=== PATIENT | male | born 1935 | race Caucasian/White ===

== ENCOUNTER 2016-12-20 12:17 | Outpatient (CLI) | payer MEDICARE, OTHER | END 2016-12-20 12:18 | disposition home or self-care (01) | DX: R97.20 Elevated prostate specific antigen [PSA] (principal) ==

== ENCOUNTER 2018-02-22 08:00 | Outpatient (CLI) | payer MEDICARE, OTHER ==
[2018-02-22 19:21] LABS: PSA FREE 0.55 ng/mL (0.16-2.81)
[2018-02-22 19:22] LABS: PSA TOTAL 4.9 ng/mL (0.000-2.000)
== END 2018-02-22 08:01 | disposition home or self-care (01) ==
LOC: LAB.WCP 08:00
PROVIDERS: ATTEND Family Medicine
DX: R97.20 Elevated prostate specific antigen [PSA] (principal)
CPT/HCPCS: 36415; 84154

== ENCOUNTER 2018-05-05 11:29 | Outpatient (CLI) | payer MEDICARE, OTHER ==
[2018-05-05 19:24] LABS: BASOPHILS % (AUTO) 0.3 %; EOSINOPHILS % (AUTO) 0.4 %; HGB - HEMOGLOBIN 15.9 g/dL (14.0-18.0); MEAN CORPUSCULAR HEMOGLOBIN 30.4 pg (27.0-31.0); MEAN CORPUSCULAR VOLUME 92.1 fL (80.0-94.0); MEAN PLATELET VOLUME 10.1 fL (7.4-11.4); MONOCYTES % (AUTO) 12.3 %; PLT - PLATELET COUNT 183 10^3/uL (130-450); RED BLOOD COUNT 5.25 10^6/uL (4.70-6.10); RED CELL DISTRIBUTION WIDTH 15.2 % (12.0-15.0); WHITE BLOOD COUNT 5.1 x10^3/uL (4.8-10.8)
[2018-05-05 19:36] LABS: ABNORMAL LYMPHS % (MANUAL) 0 %
[2018-05-05 20:35] LABS: BAND NEUTROPHILS % (MANUAL) 5 %; DIFFERENTIAL COMMENT MANUAL DIFFERENTIAL; EOSINOPHILS # (MANUAL) 0.1 10^3/uL (0-0.7); LYMPHOCYTES # (MANUAL) 0.5 10^3/uL (1.5-3.5); LYMPHOCYTES % (MANUAL) 9 %; MONOCYTES # (MANUAL) 0.4 10^3/uL (0.0-1.0); NEUTROPHILS # (MANUAL) 4.2 10^3/uL (1.5-6.6); NEUTROPHILS % (MANUAL) 78 %; PLATELET ESTIMATE, MANUAL NORMAL (130-450,000) (NORMAL); PLATELET MORPHOLOGY NORMAL APPEARANCE (NORMAL); RBC MORPHOLOGY (MULTIPLE) NORMAL APPEARANCE (NORMAL)
== END 2018-05-05 11:30 | disposition home or self-care (01) ==
LOC: LAB.WCP 11:29
PROVIDERS: ATTEND Family Medicine
DX: K52.9 Noninfective gastroenteritis and colitis, unspecified (principal)
CPT/HCPCS: 36415; 85025

== ENCOUNTER 2018-07-02 18:41 | Outpatient (CLI) | payer MEDICARE, OTHER | END 2018-07-02 18:42 | disposition critical access hospital (66) | LOC: EMS 18:41 | PROVIDERS: ATTEND Surgery | DX: R06.00 Dyspnea, unspecified (principal) | CPT/HCPCS: A0425; A0427 ==

== ENCOUNTER 2018-07-02 18:56 | Emergency (ER) | payer MEDICARE, OTHER ==
[2018-07-02] MEDS ORDERED: IPRATROPIUM/ALBUTEROL 3 ML NEB INH STA (19:03)
[2018-07-02] MEDS ORDERED: MORPHINE 2 MG/ML CARPUJECT IVP STA (19:22)
--- NOTE | 2018-07-02 19:25 | ED Physician Documentation ---
PD HPI DYSPNEA - Stated complaint Stated Complaint: SOA - Chief complaint Chief Complaint: Resp - History obtained from History obtained from: Patient, EMS - History of Present Illness Timing - onset: How many days ago (2) Timing - onset during: Rest Timing - duration: Days (2) Timing - details: Gradual onset Pain level max: 0 Pain level now: 0 Inciting event(s): URI (states coughing for a few days) Improved by: O2, BiPAP / CPAP, Rest Similar symptoms before: Has not had sx before Recently seen: Not recently seen - Additional information Additional information: Patient is a 83 year old male who presents to the Emergency Department with c/o SOA. States his medical record coder is at [facility]. Review of Systems Unable to obtain: Other (BIPAP, resp distress) PD PAST MEDICAL HISTORY - Past Medical History Past Medical History: Yes Cardiovascular: Hypertension : Benign prostate hypertrophy - Past Surgical History Past Surgical History: Yes Cardiovascular: Pacemaker - Allergies Allergies/Adverse Reactions: Allergies Allergy/AdvReac Type Severity Reaction Status Date / Time Penicillins Allergy Unknown Verified 07/02/18 19:03 shrimp Allergy Unknown Verified 07/02/18 19:04 - Living Situation Living Situation: reports: With family Living Arrangement: reports: At home - Social History Does the pt smoke?: No Does the pt have substance abuse?: No - Family History Family history: reports: Non contributory PD ED PE NORMAL - Vitals Vital signs reviewed: Yes - General General: Alert and oriented X 3, Well developed/nourished, Other (severe resp distress, unable to speak more than 1 word at a time. ) - HEENT HEENT: PERRL, Moist mucous membranes - Neck Neck: Supple, no meningeal sign - Cardiac Cardiac: Other (tachycardic) - Respiratory Respiratory: Other (rhonchi B, tachypneic) - Abdomen Abdomen: Soft, Non tender - Back Back: No spinal TTP - Derm Derm: Warm and dry - Extremities Extremities: No edema - Neuro Neuro: Alert and oriented X 3 Results - Vitals Vitals: Vital Signs - 24 hr 07/02/18 07/02/18 07/02/18 18:58 19:17 19:24 Temperature 36.7 C Heart Rate 128 H 126 H 124 H Respiratory 40 H 32 H Rate Blood Pressure 183/100 H O2 Saturation 88 L 0907/02/18 07/02/18 19:35 20:29 21:23 Temperature 36.4 C L 36.6 C Heart Rate 116 H 91 89 Respiratory 23 17 Rate Blood Pressure 157/84 H 107/70 O2 Saturation 100 96 07/02/18 22:20 Temperature 36.8 C Heart Rate 85 Respiratory 17 Rate Blood Pressure 117/75 O2 Saturation 98 Oxygen O2 Source BIPAP Oxygen Flow Rate 20 - EKG (time done) 1919 Rate: Rate (enter#) (125) Rhythm: Paced (on monitor) Intervals: LBBB - Labs Labs: Laboratory Tests 07/02/18 07/02/18 07/02/18 19:25 19:25 19:25 WBC 10.4 RBC 5.23 Hgb 16.5 Hct 48.6 MCV 93.0 MCH 31.6 H MCHC 33.9 RDW 15.3 H Plt Count 218 MPV 9.1 Neut # (Auto) 9.0 H Lymph # (Auto) 0.6 L Divide # (Auto) 0.5 Eos # (Auto) 0.1 Baso # (Auto) 0.1 Absolute Nucleated RBC 0.01 Nucleated RBC % 0.1 Sodium 132 L Potassium 3.8 Chloride 96 L Carbon Dioxide 24 Anion Gap 12.0 BUN 19 Creatinine 1.5 H Estimated GFR (MDRD) 45 L Glucose 259 H Calcium 9.4 Total Bilirubin 0.9 AST 31 ALT 15 Alkaline Phosphatase 79 Troponin I 0.34 B-Natriuretic Peptide Total Protein 7.7 Albumin 4.2 Globulin 3.5 Albumin/Globulin Ratio 1.2 Lipase 46 Urine Color Urine Clarity Urine pH Ur Specific [place] Urine Protein Urine Glucose (UA) Urine Ketones Urine Occult Blood Urine Nitrite Urine Bilirubin Urine Urobilinogen Ur Leukocyte Esterase Urine RBC Urine WBC Ur Squamous Epith Cells Urine Bacteria Urine Casts Ur Microscopic Review Urine Culture Comments 07/02/18 07/02/18 19:25 21:10 WBC RBC Hgb Hct MCV MCH MCHC RDW Plt Count MPV Neut # (Auto) Lymph # (Auto) Divide # (Auto) Eos # (Auto) Baso # (Auto) Absolute Nucleated RBC Nucleated RBC % Sodium Potassium Chloride Carbon Dioxide Anion Gap BUN Creatinine Estimated GFR (MDRD) Glucose Calcium Total Bilirubin AST ALT Alkaline Phosphatase Troponin I B-Natriuretic Peptide 1057 H Total Protein Albumin Globulin Albumin/Globulin Ratio Lipase Urine Color YELLOW Urine Clarity CLEAR Urine pH 6.0 Ur Specific [place] 1.020 Urine Protein 100 H Urine Glucose (UA) NEGATIVE Urine Ketones NEGATIVE Urine Occult Blood NEGATIVE Urine Nitrite NEGATIVE Urine Bilirubin NEGATIVE Urine Urobilinogen 0.2 (NORMAL) Ur Leukocyte Esterase NEGATIVE Urine RBC 0-5 Urine WBC 4-5 Ur Squamous Epith Cells NONE SEEN Urine Bacteria None Seen Urine Casts 3-5 Granular Casts Ur Microscopic Review INDICATED Urine Culture Comments NOT INDICATED - Rads (name of study) cxr Radiology: Prelim report reviewed, EMP read contemporaneously, See rad report (pulmonary edema) PD MEDICAL DECISION MAKING - ED course Complexity details: reviewed results, re-evaluated patient, considered differential, d/w patient, d/w organizational development consultant (2100 - Dr. Bartlett ICU [facility] [place]) ED course: Patient is an 83-year-old male who presents to the emergency department with sudden onset dyspnea tonight consistent with flash pulmonary edema, likely secondary to coronary artery disease. He was maintained on BiPAP, given Lasix and morphine. Gradually improved. Was not given nitroglycerin as he had taken Viagra recently. No history of coronary artery disease but does have a history of a pacemaker for syncope several years ago. His medical record coder is at [facility], does not recall the name. [facility] has no beds and so will be transferred to [facility] [place], Dr. Bartlett in the ICU graciously accepts in transfer. Patient started on a heparin drip. This document was made in part using voice recognition software. While efforts are made to proofread this document, sound alike and grammatical errors may occur. Patient was able to be weaned off of BiPAP onto an oxygen mask at 5 L. He is then transported to [facility] in [place] - Critical Care Time(min): 45 Time Includes: Direct patient care, Review records, Reassess patient, Document care, Coordinate care, See progress note Data interpretation: See progress note Procedures included in critical care time: See progress note Procedures excluded from critical care time: EKG, See progress note - Sepsis Event Vital Signs: Vital Signs - 24 hr 07/02/18 07/02/18 07/02/18 18:58 19:17 19:24 Temperature 36.7 C Heart Rate 128 H 126 H 124 H Respiratory 40 H 32 H Rate Blood Pressure 183/100 H O2 Saturation 88 L 07/02/18 07/02/18 07/02/18 19:35 20:29 21:23 Temperature 36.4 C L 36.6 C Heart Rate 116 H 91 89 Respiratory 23 17 Rate Blood Pressure 157/84 H 107/70 O2 Saturation 100 96 07/02/18 22:20 Temperature 36.8 C Heart Rate 85 Respiratory 17 Rate Blood Pressure 117/75 O2 Saturation 98 Oxygen O2 Source BIPAP Oxygen Flow Rate 20 Departure - Departure Disposition: 02 Transfer Acute Care Hosp Clinical Impression: NSTEMI (non-ST elevated myocardial infarction), Flash pulmonary edema Condition: Stable
--- NOTE | 2018-07-02 19:30 | XRAY Report ---
Reason: dyspnea Procedure Date: 07/02/2018 Accession Number: [id number] / [id number] Procedure: XR - Chest 1 View X-Ray CPT Code: 37111 FULL RESULT: EXAM: CHEST RADIOGRAPHY EXAM DATE: 07/02/2018 07:11 PM. CLINICAL HISTORY: Dyspnea. COMPARISON: CHEST 2 VIEW PA/LAT 09/23/2017 12:02 AM. TECHNIQUE: 1 view. FINDINGS: Lungs/Pleura: Diffuse vascular engorgement. Perihilar predominant interstitial and airspace opacities. No pleural effusion or pneumothorax. Mediastinum: Heart size is normal. The aorta is mildly tortuous, as before. Left sided bipolar pacemaker generator with atrial and ventricular leads in similar positions. Other: Degenerative changes within the spine. IMPRESSION: Pulmonary edema. RADIA
[2018-07-02 19:31] LABS: BASOPHILS # (AUTO) 0.1 10^3/uL (0.0-0.1); BASOPHILS % (AUTO) 1.4 %; EOSINOPHILS # (AUTO) 0.1 10^3/uL (0.0-0.7); HGB - HEMOGLOBIN 16.5 g/dL (14.0-18.0); LYMPHOCYTES # (AUTO) 0.6 10^3/uL (1.5-3.5); LYMPHOCYTES % (AUTO) 6.1 %; MEAN CORPUSCULAR HEMOGLOBIN 31.6 pg (27.0-31.0); MEAN CORPUSCULAR HGB CONC 33.9 g/dL (32.0-36.0); MEAN PLATELET VOLUME 9.1 fL (7.4-11.4); MONOCYTES # (AUTO) 0.5 10^3/uL (0.0-1.0); NEUTROPHILS % (AUTO) 86.5 %; PLT - PLATELET COUNT 218 10^3/uL (130-450); RED BLOOD COUNT 5.23 10^6/uL (4.70-6.10); RED CELL DISTRIBUTION WIDTH 15.3 % (12.0-15.0); WHITE BLOOD COUNT 10.4 x10^3/uL (4.8-10.8)
[2018-07-02 19:45] LABS: ALBUMIN 4.2 g/dL (3.2-5.5); ALBUMIN/GLOBULIN RATIO 1.2 (1.0-2.2); BILIRUBIN,TOTAL 0.9 mg/dL (0.2-1.0); CALCIUM 9.4 mg/dL (8.5-10.3); CREATININE 1.5 mg/dL (0.6-1.2); TOTAL PROTEIN 7.7 g/dL (6.7-8.2)
[2018-07-02] MEDS ORDERED: HEPARIN 5,000 UNIT/ML VIAL IVP STA (20:27)
[2018-07-02] MEDS ORDERED: HEPARIN 25000UNITS/500ML (D5W) 25,000 UNIT/500 ML BAG IV STA (20:27)
[2018-07-02 21:18] LABS: BILIRUBIN,URINE NEGATIVE (NEGATIVE); GLUCOSE, URINE (UA) NEGATIVE (NEGATIVE); KETONES,URINE (UA) NEGATIVE (NEGATIVE); LEUKOCYTE ESTERASE, URINE NEGATIVE (NEGATIVE); NITRITE,URINE NEGATIVE (NEGATIVE); OCCULT BLOOD,URINE NEGATIVE (NEGATIVE); PROTEIN,URINE 100 mg/dL (NEGATIVE); UROBILINOGEN,URINE 0.2 (NORMAL) E.U./dL (NORMAL)
[2018-07-02 21:20] LABS: CLARITY,URINE CLEAR (CLEAR)
[2018-07-02 21:26] LABS: BACTERIA,URINE None Seen /HPF (None Seen); RBC,URINE 0-5 /HPF (0-5); SQUAMOUS EPITHELIAL CELL,UR NONE SEEN (<= Few)
[2018-07-02 22:22] VITALS: BP 117/75
== END 2018-07-02 22:55 | disposition short-term general hospital (02) ==
LOC: EDBD → EDUNIT# → ED 18:56
DX: I21.4 Non-ST elevation (NSTEMI) myocardial infarction (principal); I10 Essential (primary) hypertension; I44.7 Left bundle-branch block, unspecified; I25.10 Atherosclerotic heart disease of native coronary artery without angina pectoris; Z95.0 Presence of cardiac pacemaker
CPT/HCPCS: 36415; 71045; 80053; 81001; 81003; 83690; 83880; 84484; 85025; 87086; 93005; 94640; 96365; 96375; 99284; 99291

== ENCOUNTER 2018-07-02 22:51 | Outpatient (CLI) | payer MEDICARE, OTHER | END 2018-07-02 22:52 | disposition short-term general hospital (02) | LOC: EMS 22:51 | PROVIDERS: ATTEND Surgery | DX: I21.4 Non-ST elevation (NSTEMI) myocardial infarction (principal) | CPT/HCPCS: A0425; A0426 ==

== ENCOUNTER 2019-01-18 07:30 | Day surgery (SDC) | payer MEDICARE, OTHER ==
[~2019-01-18 07:30] MED LIST: BRIMONIDINE 0.2% OPHTH DROPS 5 ML ONE; BSS/LIDOCAINE/EPINEPHRINE 1 ML SYRINGE ONE; CYCLOPENTOLATE 1% OPHTH DROPS 2 ML ONE; EPINEPHrine 1 MG/ML AMP ONE; KETOROLAC 0.45% OPHTH DROPS ONE; PHENYLEPHRINE 2.5% OPHTH 2 ML DROPS ONE; PROPARACAINE 0.5% OPHTH DROPS 15 ML ONE; TIMOLOL 0.5% OPHTH DROPS ONE; TRIAMCIN/MOXIFLOX OPHTHALMIC 0.6 ML VIAL IO ONE; VANCOMYCIN OPHTHALMI 8MG/0.8ML 8 MG/0.8 ML SYRINGE IO ONE
[2019-01-18] MEDS ORDERED: KETOROLAC 0.45% OPHTH DROPS LEFTEYE ONE (08:00)
[2019-01-18] MEDS ORDERED: PHENYLEPHRINE 2.5% OPHTH 2 ML DROPS LEFTEYE ONE (08:00)
[2019-01-18] MEDS ORDERED: CYCLOPENTOLATE 1% OPHTH DROPS 2 ML LEFTEYE ONE (08:00)
[2019-01-18] MEDS ORDERED: PROPARACAINE 0.5% OPHTH DROPS 15 ML LEFTEYE ONE (08:00)
--- NOTE | 2019-01-18 08:01 | ANESTHESIA ---
Pre-Anesthesia VS, & Labs - Diagnosis left senile combined cataract - Procedure left extraction cataract with lens implant Vital Signs: Temp Pulse Resp BP Pulse Ox 37.4 C 69 16 140/64 H 99 01/18/19 07:48 01/18/19 07:48 01/18/19 07:48 01/18/19 07:48 01/18/19 07:48 Height 5 ft 4 in Weight (kg) 69.4 kg Body Mass Index 23.6 - NPO >8 hours Home Medications and Allergies Home Medications: Ambulatory Orders Allopurinol 1 DAILY 01/18/19 Aspirin [Aspirin EC] 1 DAILY 01/18/19 Atorvastatin [Lipitor] 1 DAILY 01/18/19 Brimonidine 0.15% Ophth Drops [Alphagan P 0.15% Ophth Drops] 1 01/18/19 Clopidogrel [Plavix] 1 DAILY 01/18/19 Dorzolamide HCl/Pf [Dorzolamide 2% Eye Drop] 1 DAILY 01/18/19 Furosemide [Lasix] 1 DAILY 01/18/19 HYDROcod/ACET 5/325 Prepack 4 [NORCO 5/325 Prepack 4] 1 DAILY 01/18/19 Latanoprost [Xalatan] 1 01/18/19 Metoprolol Succinate [Toprol Xl] 1 DAILY 01/18/19 Omeprazole [PriLOSEC] 1 DAILY 01/18/19 Sacubitril/Valsartan [Entresto 24 mg-26 mg Tablet] 1 DAILY 01/18/19 Sildenafil Citrate [Viagra] 1 PRN 01/18/19 Spironolactone [Aldactone] 1 DAILY 01/18/19 Timolol [Betimol] 1 DAILY 01/18/19 Allergies/Adverse Reactions: Allergies Allergy/AdvReac Type Severity Reaction Status Date / Time Penicillins Allergy Unknown Verified 07/02/18 19:03 shrimp Allergy Unknown Verified 07/02/18 19:04 Anes History & Medical History - Anesthetic History Anesthesia Complications: reports: No previous complications Family history of Anesthesia Complications: Denies Family history of Malignant Hyperthermia: Denies - Medical History Cardiovascular: reports: [place], Other Pulmonary: reports: None Gastrointestinal: reports: None Urinary: reports: None Neuro: reports: None Musculoskeletal: reports: Chronic back pain Endocrine/Autoimmune: reports: None Blood Disorders: reports: None Skin: reports: None Smoking Status: Never smoker - Surgical History General: Colonoscopy, Other Eyes Ears Nose Throat (EENT):  Cardiothoracic: Coronary stent, Pacemaker Exam General: Alert Dental: Dentures full Upper, Dentures full Lower Mouth Openin Fingerbreadth Neck Mobility: Normal Mallampati classification: II Thyromental Distance: greater than 6 cm Respiratory: Lungs clear, Normal breath sounds, No respiratory distress, No accessory muscle use Cardiovascular: Normal S1, Normal S2 Cognitive Status: Within normal limits Plan Anesthesia Type: MAC Consent for Procedure(s) Verified and Reviewed: Yes Code Status: Attempt Resuscitation ASA classification: 2-Mild systemic disease Is this case an emergency?: No
[2019-01-18] MEDS ORDERED: LACTATED RINGERS 500 ML IV ONE (08:03)
[2019-01-18] MEDS ORDERED: EPINEPHrine 1 MG/ML AMP IVP ONE (08:58)
[2019-01-18] MEDS ORDERED: BRIMONIDINE 0.2% OPHTH DROPS 5 ML OPTH ONE (08:58)
[2019-01-18] MEDS ORDERED: BSS/LIDOCAINE/EPINEPHRINE 1 ML SYRINGE IO ONE (08:59)
[2019-01-18] MEDS ORDERED: TRIAMCIN/MOXIFLOX OPHTHALMIC 0.6 ML VIAL IO ONE (08:59)
[2019-01-18] MEDS ORDERED: TIMOLOL 0.5% OPHTH DROPS OPTH ONE (08:59)
[2019-01-18] MEDS ORDERED: CHONDR SULF/HYALURONATE SYRINGE IO ONE (08:59)
[2019-01-18] MEDS ORDERED: VANCOMYCIN OPHTHALMI 8MG/0.8ML 8 MG/0.8 ML SYRINGE IO ONE (09:00)
[2019-01-18] MEDS ORDERED: MIDAZOLAM 2 MG/2 ML VIAL IVP ONE (09:14)
[2019-01-18] MEDS ORDERED: fentaNYL 100 MCG/2 ML VIAL IVP ONE (09:14)
[2019-01-18 09:18] VITALS: BP 122/54
--- NOTE | 2019-01-18 11:35 | OPERATIVE REPORT ---
DATE OF SERVICE: 01/18/2019 Physician: Jass Clark MD PREOPERATIVE DIAGNOSIS: Visually significant cataract, left eye. This was his first cataract surger y. POSTOPERATIVE DIAGNOSIS: Visually significant cataract, left eye. This was his first cataract surge ry. NAME OF PROCEDURE: Phacoemulsification with posterior chamber intraocular lens implant, left eye. SURGEON: Jass Clark MD ANESTHESIA: Monitored anesthesia care. COMPLICATIONS: None. OPERATIVE INDICATIONS: This is an 83-year-old man with progressive vision loss in the left eye due t o 4+ nuclear sclerotic, 2+ cortical and trace posterior subcapsular cataract. Best corrected visual acuity was 20/70, with glare to hand motion vision in the left eye. Indications for surgery are over all decrease in vision, difficulty seeing words on a computer screen, difficulty reading, difficulty seeing words, closed captions or game scores on TV, and difficulty driving at night because of headli ghts from of the vehicles. He was consented at length concerning risks and benefits of cataract surg alyx, after which he expressed a desire to proceed with surgery. OPERATIVE PROCEDURE: The patient was taken to OR #3 and placed under monitored anesthesia care. A s urgical timeout was conducted confirming correct patient, correct procedure, and correct surgical sit e. He was given topical anesthesia, and then prepped and draped in the usual sterile fashion. The e ye was entered at the 6 and 3 o'clock positions. Intracameral Shugarcaine was injected into the ante rior chamber, followed by Viscoat. A continuous-tear curvilinear capsulorrhexis was performed. The nucleus was hydrodissected and phacoemulsified. The cortex was evacuated using automated infusion an d aspiration. Provisc was injected in the capsular bag, and a 21.5 diopter intraocular lens inserted in the bag. Approximately 0.8 mL of a mixture of triamcinolone, moxifloxacin and vancomycin was inj ected subconjunctivally in the superior quadrant for infection and inflammation prophylaxis. I and A was used to evacuate the viscoelastic materials. The eye was inflated to physiologic pressure using balanced salt solution, and found to be watertight. The patient was taken from the operating room i n good condition and given postoperative instructions. TD: 01/18/2019 09:23
== END 2019-01-18 07:31 | disposition home or self-care (01) ==
LOC: SDS 07:30
PROVIDERS: ATTEND Ophthalmology
PROC: 08RK3JZ Replacement of Left Lens with Synthetic Substitute, Percutaneous Approach (ICD-10-PCS; principal; 2019-01-18 09:00)
DX: H25.812 Combined forms of age-related cataract, left eye (principal); I10 Essential (primary) hypertension; I25.2 Old myocardial infarction; K21.9 Gastro-esophageal reflux disease without esophagitis; Z79.899 Other long term (current) drug therapy; Z95.0 Presence of cardiac pacemaker; Z79.82 Long term (current) use of aspirin; Z95.5 Presence of coronary angioplasty implant and graft
CPT/HCPCS: 66984; A9270; J3490; V2632

== ENCOUNTER 2019-03-01 07:12 | Day surgery (SDC) | payer MEDICARE, OTHER ==
[~2019-03-01 07:12] MED LIST changes: -BSS/LIDOCAINE/EPINEPHRINE 1 ML SYRINGE ONE; -CYCLOPENTOLATE 1% OPHTH DROPS 2 ML ONE; -EPINEPHrine 1 MG/ML AMP ONE; -KETOROLAC 0.45% OPHTH DROPS ONE; -PHENYLEPHRINE 2.5% OPHTH 2 ML DROPS ONE; -PROPARACAINE 0.5% OPHTH DROPS 15 ML ONE
[2019-03-01] MEDS ORDERED: LACTATED RINGERS 500 ML IV ONE (07:20)
[2019-03-01] MEDS ORDERED: PHENYLEPHRINE 2.5% OPHTH 2 ML DROPS RIGHTEYE ONE (07:31)
[2019-03-01] MEDS ORDERED: KETOROLAC 0.45% OPHTH DROPS RIGHTEYE ONE (07:31)
[2019-03-01] MEDS ORDERED: CYCLOPENTOLATE 1% OPHTH DROPS 2 ML RIGHTEYE ONE (07:31)
[2019-03-01] MEDS ORDERED: PROPARACAINE 0.5% OPHTH DROPS 15 ML RIGHTEYE ONE ×2 (07:31→08:33)
--- NOTE | 2019-03-01 07:45 | ANESTHESIA ---
Pre-Anesthesia VS, & Labs - Diagnosis right nuclear sclerotic cataract - Procedure right extraction cataract with lens implant Vital Signs: Temp Pulse Resp BP Pulse Ox 36.5 C 63 17 125/56 L 98 03/01/19 07:28 03/01/19 07:28 03/01/19 07:28 03/01/19 07:28 03/01/19 07:28 Height 5 ft 7 in Weight (kg) 69 kg Body Mass Index 23.6 - NPO >8 hours Home Medications and Allergies Allopurinol 1 DAILY 01/18/19 Aspirin [Aspirin EC] 1 DAILY 01/18/19 Atorvastatin [Lipitor] 1 DAILY 01/18/19 Brimonidine 0.15% Ophth Drops [Alphagan P 0.15% Ophth Drops] 1 01/18/19 Clopidogrel [Plavix] 1 DAILY 01/18/19 Dorzolamide HCl/Pf [Dorzolamide 2% Eye Drop] 1 DAILY 01/18/19 Furosemide [Lasix] 1 DAILY 01/18/19 HYDROcod/ACET 5/325 Prepack 4 [NORCO 5/325 Prepack 4] 1 DAILY 01/18/19 Latanoprost [Xalatan] 1 01/18/19 Metoprolol Succinate [Toprol Xl] 1 DAILY 01/18/19 Omeprazole [PriLOSEC] 1 DAILY 01/18/19 Sacubitril/Valsartan [Entresto 24 mg-26 mg Tablet] 1 DAILY 01/18/19 Sildenafil Citrate [Viagra] 1 PRN 01/18/19 Spironolactone [Aldactone] 1 DAILY 01/18/19 Timolol [Betimol] 1 DAILY 01/18/19 Allergies/Adverse Reactions: Allergies Allergy/AdvReac Type Severity Reaction Status Date / Time Penicillins Allergy Unknown Verified 07/02/18 19:03 shrimp Allergy Unknown Verified 07/02/18 19:04 Anes History & Medical History - Anesthetic History Anesthesia Complications: reports: No previous complications Family history of Anesthesia Complications: Denies Family history of Malignant Hyperthermia: Denies - Medical History Cardiovascular: reports: [place], Other Pulmonary: reports: None Gastrointestinal: reports: None Urinary: reports: None Neuro: reports: None Musculoskeletal: reports: Chronic back pain Endocrine/Autoimmune: reports: None Blood Disorders: reports: None Skin: reports: None Smoking Status: Never smoker - Surgical History General: Colonoscopy, Other Eyes Ears Nose Throat (EENT):  Cardiothoracic: Coronary stent, Pacemaker Exam General: Alert, Oriented x3, Cooperative, No acute distress Dental: Dentures full Upper, Dentures full Lower Mouth Openin Fingerbreadth Neck Mobility: Normal Mallampati classification: III Thyromental Distance: 4-6 cm Respiratory: Lungs clear, Normal breath sounds, No respiratory distress, No accessory muscle use Cardiovascular: Regular rate, Normal S1, Normal S2, No murmurs Plan Anesthesia Type: MAC Consent for Procedure(s) Verified and Reviewed: Yes Code Status: Attempt Resuscitation ASA classification: 2-Mild systemic disease Is this case an emergency?: No
[2019-03-01] MEDS ORDERED: MIDAZOLAM 2 MG/2 ML VIAL IVP ONE (08:30)
[2019-03-01] MEDS ORDERED: BRIMONIDINE 0.2% OPHTH DROPS 5 ML OPTH ONE (08:44)
[2019-03-01] MEDS ORDERED: TIMOLOL 0.5% OPHTH DROPS OPTH ONE (08:44)
[2019-03-01] MEDS ORDERED: EPINEPHrine 1 MG/ML AMP IVP ONE (08:44)
[2019-03-01] MEDS ORDERED: BSS/LIDOCAINE/EPINEPHRINE 1 ML SYRINGE IO ONE (08:44)
[2019-03-01] MEDS ORDERED: CHONDR SULF/HYALURONATE SYRINGE IO ONE (08:44)
[2019-03-01] MEDS ORDERED: VANCOMYCIN OPHTHALMI 8MG/0.8ML 8 MG/0.8 ML SYRINGE IO ONE (08:45)
[2019-03-01] MEDS ORDERED: TRIAMCIN/MOXIFLOX OPHTHALMIC 0.6 ML VIAL IO ONE (08:46)
[2019-03-01 09:12] VITALS: BP 142/69
--- NOTE | 2019-03-01 09:56 | OPERATIVE REPORT ---
DATE OF SERVICE: 03/01/2019 Physician: Jass Clark MD PREOPERATIVE DIAGNOSIS: Visually significant cataract, right eye. Cataract surgery was performed on the left eye on 01/18/2019. POSTOPERATIVE DIAGNOSIS: Visually significant cataract, right eye. PROCEDURE: Phacoemulsification with posterior chamber intraocular lens implant, right eye. SURGEON: Dr. Jass Clark. ANESTHESIA: Monitored anesthesia care. COMPLICATIONS: None. OPERATIVE INDICATIONS: This is an 83-year-old man with progressive vision loss in the right eye due to 4+ nuclear sclerotic cataract. Best corrected visual acuity was 20/70 with glare to hand motion i n the right eye. Indications for surgery were overall decrease in vision, difficulty seeing words on a computer screen, difficulty reading, difficulty seeing words, closed captions, or game scores on [employer], difficulty seeing street signs, difficulty driving at night or in low light, difficulty driving at night because of headlights from other vehicles, difficulty with glare or bright lights in any situa tion, and difficulty tracking a golf ball. He was consented at length concerning the risks and benef its of cataract surgery, after which he expressed a desire to proceed with surgery. OPERATIVE PROCEDURE: Patient was taken into OR #3 and placed under monitored anesthesia care. A geronimo gical timeout was conducted, confirming correct patient, correct procedure, and correct surgical site . He was given topical anesthesia, and then prepped and draped in the usual sterile fashion. The eye was entered at the 12 and 9 o'clock positions. Intracameral Shugarcaine was injected into th e anterior chamber, followed by Viscoat. A continuous-tear curvilinear capsulorrhexis was performed. The nucleus was hydrodissected and phacoemulsified. The cortex was evacuated using automated infus ion and aspiration. Provisc was injected in the capsular bag, and a 22.0 diopter intraocular lens in serted in the bag. Approximately 0.8 mL of a mixture of triamcinolone, moxifloxacin, and vancomycin was injected subconjunctivally at the superior quadrant for infection and inflammation prophylaxis. I and A was used to evacuate the viscoelastic materials. The eye was inflated to physiologic pressur e using a balanced salt solution and found to be watertight. The patient was taken from the [facility] room in good condition and given postoperative instructions. TD: 03/01/2019 08:58
== END 2019-03-01 07:13 | disposition home or self-care (01) ==
LOC: SDS 07:12
PROVIDERS: ATTEND Ophthalmology
PROC: 08RJ3JZ Replacement of Right Lens with Synthetic Substitute, Percutaneous Approach (ICD-10-PCS; principal; 2019-03-01 08:30)
DX: H25.11 Age-related nuclear cataract, right eye (principal); I10 Essential (primary) hypertension; I25.10 Atherosclerotic heart disease of native coronary artery without angina pectoris; E78.00 Pure hypercholesterolemia, unspecified; K21.9 Gastro-esophageal reflux disease without esophagitis; Z79.82 Long term (current) use of aspirin; Z79.02 Long term (current) use of antithrombotics/antiplatelets; Z79.891 Long term (current) use of opiate analgesic; Z95.0 Presence of cardiac pacemaker; I25.2 Old myocardial infarction
CPT/HCPCS: 66984; A9270; V2632

== ENCOUNTER 2019-03-22 10:17 | Day surgery (SDC) | payer MEDICARE, OTHER ==
[~2019-03-22 10:17] MED LIST changes: +BSS/LIDOCAINE/EPINEPHRINE 1 ML SYRINGE ONE
--- NOTE | 2019-03-22 10:28 | ANESTHESIA ---
Pre-Anesthesia VS, & Labs - Diagnosis R eye retained lens fragment - Procedure R anterior chamber lens fragment removal Vital Signs: Last Vital Signs Temp 36.3 C L 03/22/19 10:39 Pulse 56 L 03/22/19 10:39 Resp 16 03/22/19 10:39 BP 122/54 L 03/22/19 10:39 Pulse Ox 98 03/22/19 10:39 Height 5 ft 7 in Body Mass Index 23.6 - NPO >8 hours Last Fluid Intake: sips H2O with meds Home Medications and Allergies Allopurinol 300 mg PO DAILY 01/18/19 Aspirin [Aspirin EC] 81 mg PO DAILY 01/18/19 Atorvastatin [Lipitor] 10 mg PO DAILY 01/18/19 Clopidogrel [Plavix] 1 mg PO DAILY 01/18/19 Furosemide [Lasix] 1 mg PO DAILY 01/18/19 HYDROcod/ACET 5/325 Prepack 4 [NORCO 5/325 Prepack 4] 5 mg PO DAILY 01/18/19 Metoprolol Succinate [Toprol Xl] 100 mg PO DAILY 01/18/19 Omeprazole [PriLOSEC] 1 mg PO DAILY 01/18/19 Sacubitril/Valsartan [Entresto 24 mg-26 mg Tablet] 1 mg PO DAILY 01/18/19 Sildenafil Citrate [Viagra] 100 mg PO PRN PRN 01/18/19 Spironolactone [Aldactone] 1 mg PO DAILY 01/18/19 Timolol [Betimol] 1 ml DAILY 01/18/19 Allergies/Adverse Reactions: Allergies Allergy/AdvReac Type Severity Reaction Status Date / Time Penicillins Allergy Unknown Verified 07/02/18 19:03 shrimp Allergy Unknown Verified 07/02/18 19:04 Anes History & Medical History - Anesthetic History Anesthesia Complications: reports: No previous complications Family history of Anesthesia Complications: Denies Family history of Malignant Hyperthermia: Denies - Medical History Cardiovascular: reports: [place], Other Pulmonary: reports: None Gastrointestinal: reports: None Urinary: reports: None Neuro: reports: None Musculoskeletal: reports: Chronic back pain Endocrine/Autoimmune: reports: None Blood Disorders: reports: None Skin: reports: None Smoking Status: Never smoker - Surgical History General: Colonoscopy, Other Eyes Ears Nose Throat (EENT):  Cardiothoracic: Coronary stent, Pacemaker Exam General: Alert, Oriented x3 Dental: Dentures full Upper, Dentures full Lower Mouth Openin Fingerbreadth Neck Mobility: Normal Mallampati classification: II Thyromental Distance: 4-6 cm Respiratory: Lungs clear Cardiovascular: Regular rate Neurological: Normal speech Mental/Cognitive Status: Alert/Oriented X3 Cognitive Status: Within normal limits Plan Anesthesia Type: MAC Consent for Procedure(s) Verified and Reviewed: Yes Code Status: Attempt Resuscitation ASA classification: 3-Severe systemic disease Is this case an emergency?: No
[2019-03-22] MEDS ORDERED: LACTATED RINGERS 500 ML IV ONE (10:38)
[2019-03-22] MEDS ORDERED: EPINEPHrine 1 MG/ML AMP IVP ONE (11:23)
[2019-03-22] MEDS ORDERED: BRIMONIDINE 0.2% OPHTH DROPS 5 ML OPTH ONE (11:23)
[2019-03-22] MEDS ORDERED: CHONDR SULF/HYALURONATE SYRINGE IO ONE (11:24)
[2019-03-22] MEDS ORDERED: MIDAZOLAM 2 MG/2 ML VIAL IVP ONE (11:24)
[2019-03-22] MEDS ORDERED: TIMOLOL 0.5% OPHTH DROPS OPTH ONE (11:24)
[2019-03-22] MEDS ORDERED: VANCOMYCIN OPHTHALMI 8MG/0.8ML 8 MG/0.8 ML SYRINGE IO ONE (11:25)
[2019-03-22] MEDS ORDERED: TRIAMCIN/MOXIFLOX OPHTHALMIC 0.6 ML VIAL IO ONE (11:25)
[2019-03-22] MEDS ORDERED: BSS/LIDOCAINE/EPINEPHRINE 1 ML SYRINGE IO ONE (11:25)
[2019-03-22] MEDS ORDERED: PROPARACAINE 0.5% OPHTH DROPS 15 ML RIGHTEYE ONE (11:25)
[2019-03-22] MEDS ORDERED: LACTATED RINGERS 1,000 ML IV ONE (11:53)
[2019-03-22 12:45] VITALS: BP 137/57
--- NOTE | 2019-03-22 20:26 | OPERATIVE REPORT ---
DATE OF SERVICE: 03/22/2019 Physician: Jass Clark MD PREOPERATIVE DIAGNOSIS: Retained lens fragment, right eye. Cataract surgery was performed on the right eye 03/01/2019. The next day it was discovered there was a large retained lens fragment in the inferior anterior chamber, causing inflammation and corneal swelling. POSTOPERATIVE DIAGNOSIS: Retained lens fragment, right eye. Cataract surgery was performed on the right eye 03/01/2019. The next day it was discovered there was a large retained lens fragment in the inferior anterior chamber, causing inflammation and corneal swelling. OPERATIVE PROCEDURE: Phacoemulsification of the retained lens fragment in the right eye in the anterior chamber. SURGEON: Jass Clark MD ANESTHESIA: Monitored anesthesia care. COMPLICATIONS: None. OPERATIVE INDICATIONS: This is a 89-year-old man with a retained lens fragment in his right eye following cataract surgery. Vision prior to surgery was 20/200 uncorrected. He was consented at length concerning risks and benefits of lens fragment removal and he expressed a desire to proceed with surgery. OPERATIVE PROCEDURE: The patient was taken to OR #3 and placed under monitored anesthesia care. Surgical timeout was conducted confirming correct patient, correct procedure, and correct surgical site. He was given topical anesthesia and then prepped and draped in the usual sterile fashion. The eye was entered at the 12 and 9 o'clock positions. Intracameral Shugarcaine was injected into the anterior chamber, followed by Viscoat. Unfortunately, due to the corneal swelling, it was difficult to see anything in the anterior chamber and then through the phaco wound the iris prolapsed. I sutured the wound in anticipation of using bimanual I&A to get a piece of lens that I could see inferiorly. However, we could not get the bimanual vitrector set to operate properly. The cornea started to clear and I could see the anterior chamber very well and well as the lens fragment. I was able to manipulate the lens fragment to close to the phaco wound, removed the suture, went back to phaco, went into the anterior chamber, and phacoemulsified the lens fragment. Then performed coaxial I&A to remove the viscoelastic materials. The eye was inflated and the wound stayed well sealed. Approximately 0.8 mL the mixture of triamcinolone, moxifloxacin, and vancomycin was injected subconjunctivally in the superior quadrant for infection and inflammation prophylaxis. The patient was taken from the operating room in good condition and given postoperative instructions. TD: 03/22/2019 12:40 MARQUITA
== END 2019-03-22 10:18 | disposition home or self-care (01) ==
LOC: SDS 10:17
PROVIDERS: ATTEND Ophthalmology
PROC: 085J3ZZ Destruction of Right Lens, Percutaneous Approach (ICD-10-PCS; principal; 2019-03-22 12:00)
DX: H59.021 Cataract (lens) fragments in eye following cataract surgery, right eye (principal); Y83.8 Other surgical procedures as the cause of abnormal reaction of the patient, or of later complication, without mention of misadventure at the time of the procedure; I10 Essential (primary) hypertension; I25.2 Old myocardial infarction; Z95.0 Presence of cardiac pacemaker; Z79.02 Long term (current) use of antithrombotics/antiplatelets; Z79.899 Other long term (current) drug therapy; Z79.82 Long term (current) use of aspirin
CPT/HCPCS: 66850; A9270; J7120

== ENCOUNTER 2020-02-04 08:00 | Outpatient (CLI) | payer MEDICARE, OTHER ==
[2020-02-04 13:18] LABS: BASOPHILS % (AUTO) 0.8 %; EOSINOPHILS # (AUTO) 0.5 10^3/uL (0.0-0.7); EOSINOPHILS % (AUTO) 10.2 %; HGB - HEMOGLOBIN 12.3 g/dL (14.0-18.0); LYMPHOCYTES # (AUTO) 1.1 10^3/uL (1.5-3.5); LYMPHOCYTES % (AUTO) 22.2 %; MEAN CORPUSCULAR HGB CONC 31.4 g/dL (32.0-36.0); MEAN CORPUSCULAR VOLUME 92.5 fL (80.0-94.0); MEAN PLATELET VOLUME 11.8 fL (7.4-11.4); MONOCYTES # (AUTO) 0.5 10^3/uL (0.0-1.0); NEUTROPHILS # (AUTO) 2.9 10^3/uL (1.5-6.6); NEUTROPHILS % (AUTO) 56.6 %; PLT - PLATELET COUNT 173 10^3/uL (130-450); RED BLOOD COUNT 4.24 10^6/uL (4.70-6.10); RED CELL DISTRIBUTION WIDTH 15.7 % (12.0-15.0); WHITE BLOOD COUNT 5.1 x10^3/uL (4.8-10.8)
[2020-02-04 13:40] LABS: ALBUMIN 3.7 g/dL (3.2-5.5); ALBUMIN/GLOBULIN RATIO 1.3 (1.0-2.2); ALKALINE PHOSPHATASE 60 IU/L (42-121); ALT ALANINE AMINOTRANSFERASE 16 IU/L (10-60); AST ASPARTATE AMINOTRANSFERASE 25 IU/L (10-42); BILIRUBIN,TOTAL 0.7 mg/dL (0.2-1.0); BUN - BLOOD UREA NITROGEN 18 mg/dL (6-20); CALCIUM 8.9 mg/dL (8.5-10.3); CARBON DIOXIDE - CO2 27 mmol/L (21-32); CHLORIDE 101 mmol/L (101-111); CHOL/HDL RATIO 2.5 (<5.0); CHOLESTEROL 113 mg/dL; CREATININE 1.4 mg/dL (0.6-1.2); GLUCOSE 107 mg/dL (70-100); HDL CHOLESTEROL 45 mg/dL; LDL CHOLESTEROL,CALCULATED 53 mg/dL; LDL/HDL RATIO 1.2 (<3.6); SODIUM 137 mmol/L (135-145); TOTAL PROTEIN 6.6 g/dL (6.7-8.2); VLDL CHOLESTEROL 15 mg/dL
== END 2020-02-04 23:59 | disposition home or self-care (01) ==
LOC: LAB.WCP 08:00
PROVIDERS: ATTEND Family Medicine
DX: I11.0 Hypertensive heart disease with heart failure (principal); I50.22 Chronic systolic (congestive) heart failure; Z79.891 Long term (current) use of opiate analgesic
CPT/HCPCS: 36415; 80053; 80061; 83721; 84443; 85025